=== PATIENT | female | born 1935 | race Caucasian/White ===

== ENCOUNTER 2017-03-25 09:09 | Outpatient (CLI) | payer MEDICARE ==
--- NOTE | 2017-03-25 16:05 | MRI ---
MRI BRAIN NONCONTRAST: DATE: 03/25/17 HISTORY: 82-year-old female with "jerking movements of extremities, R25.2." COMPARISON: No prior brain MRIs. FINDINGS: There is an extremely large number of tiny, punctate foci of remote intra-axial microhemorrhages thr oughout the bilateral cerebral hemispheres. These do not involve the basal ganglia, thalami, brainst em, and cerebellum. This is consistent with amyloid angiopathy. There are several small patchy foci of asymmetrically distributed T2 hyperintense intraaxial lesions , including in the following locations: left upper laeral parietal lobe, left mid-lateral parietal l obe, right insula, right lateral inferior frontal lobe, left anterior temporal lobe, and left orbita l gyrus posteriorly. These predominantly involve subcortical white matter, but there is some cortica l involvement. In addition to this, there are confluent, bilaterally symmetrical T2 hyperintensities throughout the periventricular, deep, and subcortical white matter, consistent with moderate to severe chronic isc hemic white matter changes due to microvascular atherosclerosis. The ventricles are normal in size and configuration. There is no evidence of acute intra-axial hemor rhage, restricted diffusion, mass effect, midline shift, or extra-axial fluid collection. IMPRESSION: 1. Amyloid angiopathy of the cerebrum. 2. Moderate to severe chronic ischemic white matter changes of the cerebrum due to microvascula r atherosclerosis. 3. Irregular, patchy foci of asymmetrical intra-axial signal abnormality in the cerebrum as lis raghu above. Differential diagnosis includes nonacute (subacute versus chronic) infarctions, and vasog enic edema around possible metastatic lesions. An MRI with IV gadolinium contrast would be useful (u nless there are contraindications to IV gadolinium). ESTEFANY R POS: ESSENCE
== END 2017-03-25 09:10 | disposition home or self-care (01) ==
LOC: MRI 09:09
PROVIDERS: ATTEND Psychiatry & Neurology Neurology
DX: R25.2 Cramp and spasm (principal); R41.3 Other amnesia; I67.2 Cerebral atherosclerosis; I99.8 Other disorder of circulatory system
CPT/HCPCS: 70551; 95816

== ENCOUNTER 2017-04-06 07:53 | Outpatient (CLI) | payer MEDICARE ==
--- NOTE | 2017-04-06 10:07 | MRI ---
MRI BRAIN WITH CONTRAST: Date: 04-06-17 History: 82-year-old female with abnormal noncontrast brain MRI of 03-25-17 (R90.89). Contrast enhanced study performed for further evaluation. Technique: Following IV injection of 15 ml of MultiHance Gadolinium based contrast agent, T1 weighted axial, co matt, and sagittal sequences were obtained, in addition to a T1 axial MPR sequence. FINDINGS: None of the multifocal signal abnormalities described in the report of 03-25-17, enhances. The rest o f the items in the impression are based on the original MRI of 03-25-17. IMPRESSION: 1. The irregular, patchy foci of asymmetric intraaxial signal abnormalities in the cerebrum, involvi ng subcortical white matter, but also some cortex, do not enhance. Therefore, these are not metastat ic lesions. They may represent subacute or chronic infarctions or perhaps traumatic injuries. Recomm end follow up noncontrast MRI of the brain in 3 - 6 months. 2. Amyloid angiopathy of the cerebrum. 3. Moderate to severe chronic ischemic white matter changes of the cerebrum due to microvascular ath erosclerosis. POS: ESSENCE
[2017-04-06] MEDS ORDERED: Gadobenate Dimeglumine 529 MG/1 ML (20ML VIAL) ONE (16:15)
== END 2017-04-06 07:54 | disposition home or self-care (01) ==
LOC: MRI 07:53
PROVIDERS: ATTEND Psychiatry & Neurology Neurology
DX: R90.89 Other abnormal findings on diagnostic imaging of central nervous system (principal); I67.2 Cerebral atherosclerosis; I68.0 Cerebral amyloid angiopathy; G93.89 Other specified disorders of brain
CPT/HCPCS: 70552; A9579

== ENCOUNTER 2020-03-07 11:40 | Observation (INO) | payer MEDICARE, MEDICAID, OTHER ==
[2020-03-07 12:36] LABS: #Eosinphils 0.1 thou/uL (0.0-0.7); #Lymphocytes 1.3 thou/uL (1.20-3.40); #Monocytes 0.9 thou/uL (0.11-0.59); #Neutrophils 4.1 thou/uL (1.40-6.50); %Basophils 0.6 % (0.0-1.0); %Eosinophils 1.3 % (0.0-10.0); %Lymphocytes 19.9 % (21.0-51.0); %Monocytes 14.7 % (0.0-10.0); %Neutrophils 63.5 % (42.0-75.0); Hemoglobin 11.1 g/dL (12.0-16.0); Mean Corpuscular HGB CONC 33.6 g/dL (32.0-36.0); Mean Corpuscular Hemoglobin 32.9 pg (27.0-31.0); Mean Corpuscular Volume 97.9 fL (78.0-98.0); Mean Platelet Volume 7.6 fL (7.4-10.4); Platelet Count 181 thou/uL (130-400); RBC Distribution Width 11.3 % (11.5-14.5); Red Blood Cell (RBC) Count 3.38 mill/uL (4.20-5.40); White Blood Cell (WBC) Count 6.4 thou/uL (4.8-10.8)
[2020-03-07 12:54] LABS: ALT (SGPT) 15 U/L (8-55); AST (SGOT) 20 U/L (5-34); Albumin 3.6 g/dL (3.4-4.8); Alkaline Phosphatase 55 U/L (40-110); Anion Gap 12 mmol/L (10-20); BUN (Urea Nitrogen) 18 mg/dL (9.8-20.1); Bilirubin, Total 0.3 mg/dL (0.2-1.2); Calc. Creatinine Clearance 0 mL/min (70-130); Calcium 8.8 mg/dL (7.8-10.44); Carbon Dioxide 26 mmol/L (23-31); Chloride 104 mmol/L (98-107); Estimated GFR-MDRD 65; Glucose 108 mg/dL (83-110); Potassium 4.2 mmol/L (3.5-5.1); Protein, Total 6.6 g/dL (6.0-8.3); Sodium 138 mmol/L (136-145)
--- NOTE | 2020-03-07 12:57 | RAD ---
PORTABLE CHEST 1 VIEW: DATE: 03/07/2020. TIME: 12:26 PM. HISTORY: Syncope. COMPARISON: 02/25/2020. FINDINGS: The heart size is borderline. The aorta is tortuous. No lobar consolidation, pneumothoraces, or ple ural effusions are seen. There are degenerative changes in the shoulder joints. IMPRESSION: No acute process. POS: AH
--- NOTE | 2020-03-07 13:35 | CT ---
HEAD CT WITHOUT CONTRAST: 03/07/20 COMPARISON: 02/25/20 HISTORY: Recent CPR. TECHNIQUE: Axial CT imaging at 5 mm intervals from vertex through skull base without contrast. FINDINGS: The imaged paranasal sinuses and mastoid air cells are well aerated. There is no displaced calvarial fracture. There is extensive periventricular, deep, and subcortical white matter hypodensity, evidence of small vessel disease. There is no intracranial hemorrhage, midline shift or mass effect. IMPRESSION: Chronic findings as above. No acute findings are seen. POS: [facility]
[2020-03-07 15:04] LABS: Bacteria/HPF None Seen HPF (None Seen); Bilirubin Negative (Negative); Blood, Urine 2+ (Negative); Clarity Clear (Clear); Glucose, Urine (Dipstick) Normal (Negative); Ketone, Urine Negative (Negative); Leukocyte Negative Leu/uL (Negative); Nitrite Negative (Negative); Protein, Urine (Dipstick) Negative (Neg-Trace); Specific Gravity, Urine 1.007 (1.002-1.036); Squamous Epithelial 0-3 HPF (0-3); Urobilinogen Normal mg/dL (Less than 2); WBC/HPF 0-3 HPF (0-3)
--- NOTE | 2020-03-07 17:20 | PDOC.HHP ---
Hospitalist HPI - History of Present Illness Syncope History of Present Illness: PCP: Dr. Crisostomo Chief complaint: Syncope The H&P was taken from the patient's daughter/MPOA and ER documentation secondary to the patient's history of dementia. 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 The patient was participating with physical therapy this morning. At the end of her session, while attempting to sit down on her bed, she became unresponsive for approximately 10 minutes. EMS was called. According to the ER record, EMS reported a stable blood pressure, stable heart rate, stable SPO2 saturation. 12-lead "clean" per EMS. Of note, the patient was recently discharged from our hospital on March 05 with a discharge diagnosis of UTI, dehydration and failure to thrive. Patient was discharged home on Levaquin, which her daughter states that she is still taking. Her her daughter denies any recent trauma or falls. Denies any recent fever or signs of infection. No changes in any medications. No recent surgeries or procedures. Her daughter stated that she thinks her mother became tired after participating in a full session of physical therapy and that along with her progressive dementia played a role in her altered mental status. ED Course: VITAL SIGNS TueMar 07, 2020 12:00 YENNI Rosenthal Cory BP: 117/68, MAP: 84, Pulse: 73, Resp: 18, O2 sat: 97 on (Room Air), Time: 2019 12:00. VITAL SIGNS TueMar 07, 2020 13:00 YENNI Rosenthal Cory BP: 127/71, MAP: 89, Pulse: 66, Resp: 16, O2 sat: 96 on (Room Air), Time: 2019 13:00. VITAL SIGNS TueMar 07, 2020 14:00 YENNI Rosenthal Cory BP: 147/80, MAP: 102, Pulse: 90, Resp: 13, O2 sat: 99 on (Room Air), Time: 2019 14:00. VITAL SIGNS TueMar 07, 2020 15:00 YENNI Rosenthal Cory BP: 134/81, MAP: 98, Pulse: 86, Resp: 15, O2 sat: 97 on (Room Air), Time: 2019 15:00. The patient presented with stable blood pressure, stable pulse, stable respirations, stable SPO2 sat, afebrile. EKG normal sinus rhythm no ST elevation. Chest x-ray negative for acute process. CT brain negative for acute process. Troponin 0 0.016. WBC 6.4. UA showed RBCs and blood. No medications administered. Hospitalist ROS - Review of Systems ROS unobtainable: due to mental status All other systems reviewed; all pertinent +/- noted in HPI/Subj - Medication Medications: acetaminophen oral TueMar 07, 2020 13:55 YENNI Eng Hannah tablet : Strength - 500 mg : ORAL Patient Dose: 1 tab(s) Oral 4 times a day. acetaminophen oral TueMar 07, 2020 13:55 YENNI Eng Hannah tablet : Strength - 650 mg : ORAL Patient Dose: 1 tab(s) Oral every 4 hours prn. aspirin oral TueMar 07, 2020 13:56 YENNI Eng Hannah tablet : Strength - 81 mg : ORAL Patient Dose: 1 tab(s) Oral once a day. citalopram TueMar 07, 2020 13:56 YENNI Eng Hannah tablet : Strength - 20 mg : ORAL Patient Dose: 1 tab(s) Oral once a day. Claritin TueMar 07, 2020 13:57 YENNI Eng Hannah tablet : Strength - 10 mg : ORAL Patient Dose: 1 tab(s) Oral once a day. Colace TueMar 07, 2020 13:57 YENNI Eng Hannah capsule : Strength - 100 mg : ORAL Patient Dose: 1 cap(s) Oral once a day PRN. donepezil TueMar 07, 2020 13:58 YENNI Eng Hannah tablet : Strength - 10 mg : ORAL Patient Dose: 1 tab(s) Oral once a day (at bedtime). famotidine oral TueMar 07, 2020 13:59 YENNI Eng Hannah tablet : Strength - 20 mg : ORAL Patient Dose: 1 tab(s) Oral once a day. Florastor TueMar 07, 2020 13:59 YENNI Eng Hannah capsule : Strength - 50 mg : ORAL Patient Dose: 1 cap(s) Oral once a day. gabapentin TueMar 07, 2020 14:02 YENNI Eng Hannah tablet : Strength - 300 mg : ORAL Patient Dose: 1 tab(s) Oral 2 times a day. Levaquin oral TueMar 07, 2020 14:03 YENNI Eng Hannah tablet : Strength - 750 mg : ORAL Patient Dose: 1 tab(s) Oral once a day.x 5 days (started 03/06/20). RisperDAL TueMar 07, 2020 14:03 YENNI Eng Hannah tablet : Strength - 0.25 mg : ORAL Patient Dose: 1 tab(s) Oral 2 times a day. Synthroid oral TueMar 07, 2020 14:04 YENNI Eng Hannah tablet : Strength - 100 mcg : ORAL Patient Dose: 1 tab(s) Oral once a day (in the morning). Thera-M tablet TueMar 07, 2020 14:04 YENNI Eng Hannah tablet : ORAL Patient Dose: 1 tab(s) Oral once a day. Allergies: No Known Allergies Hospitalist History - Past Medical History Source: patient, family, RN notes reviewed, [facility] record Psych: reports: Depression Musculoskeletal: reports: Osteoarthritis Endocrine: reports: Hypothyroidism Other Medical History: MEDICAL HISTORY TueMar 07, 2020 13:54 YENNI Eng Hannah Hypothyroidism, GERD, polyneuropathy, HTN, osteoarthritis, CVA, dementia. Verified with penitentiary paperwork on 03/07/20. FEMALE SURGICAL HISTORY TueMar 07, 2020 13:54 YENNI Eng Hannah Patient's surgical history not available at time of evaluation. PSYCHIATRIC HISTORY TueMar 07, 2020 13:54 YENNI Eng Hannah Psychiatric history includes, depression, Verified with penitentiary paperwork on 03/07/20. SOCIAL HISTORY TueMar 07, 2020 13:54 YENNI Eng Hannah Patient denies alcohol use, Patient denies drug use, Patient has no smoking history, Lives in [facility] care facility, Name of [facility], [place], 2 person assist for ambulation, diet is pureed, thin liquids, feeder/ prompting, Verified with daughter/MPOA. FAMILY HISTORY: non contributory to this case. - Social History Smoking Status: Never smoker Alcohol: reports: None Drugs: reports: none Activity level: wheelchair bound (2 person assist to ambulate.) - Exam General Appearance: NAD, awake alert. negative: ill appearing General - other findings: Moves all extremities well, baseline per daughter at bedside. Eye: anicteric sclera Eye - other findings: Pupils equal round reactive to light, 2 bilaterally ENT: normocephalic atraumatic, dry oral mucosa Neck: supple, symmetric, no JVD, no lymphadenopathy Heart: RRR, no murmur, no gallops, no rubs, normal peripheral pulses Respiratory: CTAB, no wheezes, no rales, no ronchi, normal chest expansion, no tachypnea Respiratory - other findings: Diminished in lower lobes Gastrointestinal: soft, non-tender, normal bowel sounds, no hepatomegaly, no splenomegaly, no bruit Gastrointestinal - other findings: Mildly distended suprapubic region Extremities: no cyanosis, no clubbing, no edema Skin: negative: no lesions Skin - other findings: Multiple bruises to BUE/BLE at multiple stages healing Neurological: normal sensation to touch, no weakness (No focal motor weakness), no focal deficits Neurological - other findings: Speech is inappropriate intermittently, baseline per daughter at bedside Musculoskeletal: generalized weakness Psychiatric: oriented to person (Waxes and wanes per daughter), flat affect Hospitalist Results - Labs Result Diagrams: 03/07/20 12:19 03/07/20 12:19 Lab results: WBC 6.4 thou/uL (4.8-10.8) 03/07/20 12:19 Hgb 11.1 g/dL (12.0-16.0) L 03/07/20 12:19 Hct 33.1 % (36.0-47.0) L 03/07/20 12:19 MCV 97.9 fL (78.0-98.0) 03/07/20 12:19 Plt Count 181 thou/uL (130-400) 03/07/20 12:19 Neutrophils % 63.5 % (42.0-75.0) 03/07/20 12:19 Sodium 138 mmol/L (136-145) 03/07/20 12:19 Potassium 4.2 mmol/L (3.5-5.1) 03/07/20 12:19 Chloride 104 mmol/L (98-107) 03/07/20 12:19 Carbon Dioxide 26 mmol/L (23-31) 03/07/20 12:19 BUN 18 mg/dL (9.8-20.1) 03/07/20 12:19 Creatinine 0.83 mg/dL (0.6-1.1) 03/07/20 12:19 Glucose 108 mg/dL (83-110) 03/07/20 12:19 Calcium 8.8 mg/dL (7.8-10.44) 03/07/20 12:19 Total Bilirubin 0.3 mg/dL (0.2-1.2) 03/07/20 12:19 AST 20 U/L (5-34) 03/07/20 12:19 ALT 15 U/L (8-55) 03/07/20 12:19 Alkaline Phosphatase 55 U/L (40-110) 03/07/20 12:19 Troponin I 0.016 ng/mL (< 0.028) 03/07/20 12:19 Serum Total Protein 6.6 g/dL (6.0-8.3) 03/07/20 12:19 Albumin 3.6 g/dL (3.4-4.8) 03/07/20 12:19 Urine Ketones Negative mg/dL (Negative) 03/07/20 14:47 Urine Blood 2+ (Negative) A 03/07/20 14:47 Urine Nitrite Negative (Negative) 03/07/20 14:47 Ur Leukocyte Esterase Negative Marco A/uL (Negative) 03/07/20 14:47 Urine RBC 4-6 HPF (0-3) A 03/07/20 14:47 Urine WBC 0-3 HPF (0-3) 03/07/20 14:47 Ur Squamous Epith Cells 0-3 HPF (0-3) 03/07/20 14:47 Urine Bacteria None Seen HPF (None Seen) 03/07/20 14:47 - EKG Interpretation EK lead EKG shows normal sinus rhythm, Rate (beats per minute): 72, with no ectopics, Conduction normal, ST segments normal, [place], left, Nonspecific T wave changes. - Radiology Interpretation CT scan - head Status: report reviewed by me Chest x-ray Status: report reviewed by me Hospitalist H&P A/P - Problem (1) Syncope Code(s): R55 - SYNCOPE AND COLLAPSE Status: Acute Assessment and Plan: We will admit to the telemetry floor, stroke unit, observation status. Expected length of stay less than 2 midnights. Patient presented with stable vital signs. CT brain, chest x-ray negative for any acute process. EKG was normal sinus rhythm, initial troponin negative. CBC, CMP, UA unremarkable. Will give gentle IV fluid hydration. Will trend troponins, check TSH, BNP, mag level. Get echocardiogram and carotid ultrasound. Consult neurology. Perform neuro checks. Check orthostatic vital signs. (2) Dementia Code(s): F03.90 - UNSPECIFIED DEMENTIA WITHOUT BEHAVIORAL DISTURBANCE Status: Chronic Assessment and Plan: Daughter reports that her mother is progressing to late stage dementia. Mental status waxes and wanes. Reports she is on a pured, thin liquid, needs prompting to eat. Will order appropriate diet. We will restart home donezepil. Fall precautions. (3) FTT (failure to thrive) in adult Status: Chronic Assessment and Plan: Chronic. (4) Hypothyroidism Code(s): E03.9 - HYPOTHYROIDISM, UNSPECIFIED Status: Chronic Assessment and Plan: We will check TSH level. Will restart patient's home dose of Synthroid. (5) GERD (gastroesophageal reflux disease) Code(s): K21.9 - GASTRO-ESOPHAGEAL REFLUX DISEASE WITHOUT ESOPHAGITIS Status: Chronic Assessment and Plan: We will restart patient's home dose of Pepcid. (6) HTN (hypertension) Code(s): I10 - ESSENTIAL (PRIMARY) HYPERTENSION Status: Chronic Assessment and Plan: Patient presented with a stable blood pressure. She does not take any home medications for hypertension. We will continue to monitor BP. - Plan Plan: SCDs for DVT prophylaxis. Pepcid for GI prophylaxis. CODE STATUS this DNAR. MPOA is ALISSA ANNA, Relationship to patient DAUGHTER, Phone number: . Discussed case with Dr. Guillen.
[2020-03-07] MEDS ORDERED: Ondansetron ODT 4 MG TAB PO PRN (17:46)
[2020-03-07] MEDS ORDERED: Acetaminophen 650 MG Suppository PR PRN (17:46)
[2020-03-07] MEDS ORDERED: Calcium Carbonate 500 MG ChewTAB PO PRN (17:46)
[2020-03-07] MEDS ORDERED: Acetaminophen 325 MG TAB PO PRN ×2 (17:46→17:53)
[2020-03-07] MEDS ORDERED: Senokot S 8.6-50 MG TAB PO PRN (17:46)
[2020-03-07] MEDS ORDERED: Ondansetron PF 4 MG/2 ML Vial IVP PRN (17:46)
[2020-03-07] MEDS ORDERED: Docusate 100 MG CAP PO PRN (17:53)
[2020-03-07] MEDS ORDERED: Sodium Chloride 0.9% 1,000 ML IV SCH (18:00)
[2020-03-07 20:45] VITALS: BMI 21.8
[2020-03-07 21:11] LABS: Troponin I Less than 0.010 ng/mL (< 0.028)
[2020-03-07] MEDS: Acetaminophen 500 MG TAB PO SCH (21:28)
[2020-03-07] MEDS: Gabapentin 300 MG CAP PO SCH (21:29)
[2020-03-07] MEDS: Famotidine 20 MG TAB PO SCH (21:29)
[2020-03-07] MEDS: Donepezil HCl 5 MG TAB PO SCH (21:29)
[2020-03-07] MEDS: Famotidine/PF 20 mg/2ml Vial SLOW IVP SCH (21:29)
--- NOTE | 2020-03-07 22:34 | ULT ---
BILATERAL CAROTID DUPLEX ULTRASOUND: HISTORY: Stroke TECHNIQUE: Grayscale, color-flow and spectral Doppler ultrasound imaging of the extracranial carotid artery syst ems and vertebral arteries was performed bilaterally. FINDINGS: Right carotid: Scattered atherosclerotic plaque in the carotid bifurcation and proximal internal hoffmann tid artery Left carotid: Minimal atherosclerosis of the carotid bifurcation and proximal internal carotid artery . The peak systolic velocity in the right ICA measures 104.9 cm/s. The peak systolic velocity in the r ight CCA measures 93.8 cm/s. The peak systolic velocity in the left ICA measures 59.9 cm/s. The peak systolic velocity in the l eft CCA measures 92.7 cm/s. The right IC/CC ration is1.1. The left IC/CC ratio is 0.7. Vertebral flow: antegrade, bilaterally. . IMPRESSION: No hemodynamically significant stenosis of either cervical carotid artery.
[2020-03-08] MEDS ORDERED: Magnesium 2 GM/50 ML 2 GM in Premix Bag 1 BAG IVPB SCH (00:30)
[2020-03-08 05:03] LABS: #Eosinphils 0.1 thou/uL (0.0-0.7); #Lymphocytes 1.4 thou/uL (1.20-3.40); #Monocytes 1.2 thou/uL (0.11-0.59); #Neutrophils 5.3 thou/uL (1.40-6.50); %Basophils 0.4 % (0.0-1.0); %Lymphocytes 17.3 % (21.0-51.0); %Monocytes 14.8 % (0.0-10.0); %Neutrophils 66.5 % (42.0-75.0); Hemoglobin 11.1 g/dL (12.0-16.0); Mean Corpuscular HGB CONC 32.9 g/dL (32.0-36.0); Mean Corpuscular Hemoglobin 32.1 pg (27.0-31.0); Mean Corpuscular Volume 97.5 fL (78.0-98.0); Mean Platelet Volume 7.5 fL (7.4-10.4); Platelet Count 192 thou/uL (130-400); RBC Distribution Width 11.5 % (11.5-14.5); Red Blood Cell (RBC) Count 3.46 mill/uL (4.20-5.40); White Blood Cell (WBC) Count 7.9 thou/uL (4.8-10.8)
[2020-03-08] MEDS: Levothyroxine Sodium 100 MCG TAB PO SCH (05:18)
[2020-03-08 05:20] LABS: Anion Gap 14 mmol/L (10-20); BUN (Urea Nitrogen) 13 mg/dL (9.8-20.1); Calc. Creatinine Clearance 53 mL/min (70-130); Calcium 8.8 mg/dL (7.8-10.44); Carbon Dioxide 24 mmol/L (23-31); Chloride 105 mmol/L (98-107); Estimated GFR-MDRD 70; Glucose 96 mg/dL (83-110); Potassium 3.8 mmol/L (3.5-5.1); Sodium 139 mmol/L (136-145)
[2020-03-08] MEDS: Famotidine/PF 20 mg/2ml Vial SLOW IVP SCH ×2 (08:28→22:17)
[2020-03-08] MEDS ORDERED: Famotidine 20 MG TAB PO SCH (09:00)
--- NOTE | 2020-03-08 12:12 | EEG ---
DATE OF SERVICE: 03/08/2020 ATTENDING PHYSICIAN: Aleyda Gonzalez MD This EEG was performed using 24-channel [employer]iaretek video digital EEG machine with 24-disk electrode. This was an extended 2 hours 4 minutes of inpatient video EEG recording. Digital analysis of the EEG was done for spike and seizure detection which revealed no abnormalities. BACKGROUND: The posterior background rhythm was not observed. HYPERVENTILATION: Not performed. PHOTIC STIMULATION: No significant response seen with photic stimulation. SLEEP: No stage change was observed. EEG DIAGNOSES: 1. Intermittent irregular theta activity seen throughout the recording. 2. Absence of posterior background rhythm. CLINICAL INTERPRETATION: This EEG is consistent with moderate generalized nonspecific cerebral dysfunction. Job ID: [id number]
[2020-03-08] MEDS: Lactinex Tablet PO SCH (12:19)
[2020-03-08] MEDS: Loratadine 10 MG TAB PO SCH (12:19)
[2020-03-08] MEDS: Multivitamin W/ Minerals 1 TAB PO SCH (12:19)
[2020-03-08] MEDS: Aspirin 81 mg Enteric Coated Tablet PO SCH (12:19)
[2020-03-08] MEDS: Gabapentin 300 MG CAP PO SCH ×2 (12:19→22:17)
[2020-03-08] MEDS: Acetaminophen 500 MG TAB PO SCH ×4 (12:19→22:17)
[2020-03-08] MEDS: Famotidine 20 MG TAB PO SCH ×2 (12:20→22:17)
[2020-03-08] MEDS: risperiDONE 0.25 MG TAB PO SCH ×2 (12:25→22:17)
[2020-03-08] MEDS: Citalopram 20 MG TAB PO SCH (12:26)
--- NOTE | 2020-03-08 13:13 | CON ---
NEUROLOGY CONSULTATION DATE OF CONSULTATION: 03/08/2020 REASON FOR CONSULTATION: Syncope. HISTORY OF PRESENT ILLNESS: Ms. Amelia Wagner is an 85-year-old female with medical history significant for hypothyroidism, GERD, dementia, prior CVA, osteoarthritis, presented to the hospital with an episode of loss of consciousness. The patient is unable to provide the history and history is taken from review of the medical. Per records, the patient was participating in physical therapy on 03/07/2020. When became unresponsive for 10 minutes, there was no documentation of jerking, tongue bite or urinary incontinence associated with the episode. EMS was called and at that time, her blood pressure was stable. A 12-lead EKG was done, which was normal. She was brought to the hospital for further evaluation. According to the records, there has been no recent trauma, falls, fever, or infection. There have been no changes in the medication and the patient has been participating in physical therapy sessions, but she does have progressive dementia. She was recently discharged from the hospital on March 05 with UTI, dehydration and failure to thrive. There is no documentation of focal weakness, focal paresthesias, nausea, vomiting, headache, chest pain associated with the episode. REVIEW OF SYSTEMS: Unable to obtain secondary to patient's mental status. MEDICATIONS: 1. Tylenol 500 mg 4 times daily. 2. Aspirin 81 mg once daily. 3. Citalopram 20 mg once daily. 4. Claritin 10 mg once daily. 5. Colace 1 capsule once daily p.r.n. 6. Donepezil 10 mg once daily. Famotidine 20 mg once daily. 1. Florastor 50 mg once daily. 2. Gabapentin 300 mg 2 times daily. 3. Levaquin 750 mg once daily for 5 days, started on 03/06/2020. 4. Risperdal 0.25 mg twice daily. 5. Synthroid 100 mcg 1 tab once daily. 6. Thera-M 1 tab once daily. ALLERGIES: NO KNOWN DRUG ALLERGIES. PAST MEDICAL HISTORY: Depression, osteoarthritis, hypothyroidism, GERD, polyneuropathy, hypertension, CVA, dementia. PAST SURGICAL HISTORY: Not significant. SOCIAL HISTORY: There is no documented history of illegal drug abuse, alcohol abuse, or smoking. She lives in a long-term care facility. The patient is wheelchair bound and needs 2 people to assist. FAMILY HISTORY: No family history of stroke. PHYSICAL EXAMINATION: VITAL SIGNS: Blood pressure 110/60, pulse 80, respiratory rate 18. General Appearance: NAD, awake alert. negative: ill appearing Eye: anicteric sclera Eye - other findings: Pupils equal round reactive to light, 2 bilaterally ENT: normocephalic atraumatic, dry oral mucosa Neck: supple, symmetric, no JVD, no lymphadenopathy Heart: RRR, no murmur, no gallops, no rubs, normal peripheral pulses Respiratory: CTAB, no wheezes, no rales, no ronchi, normal chest expansion, no tachypnea Respiratory - other findings: Diminished in lower lobes Gastrointestinal: soft, non-tender, normal bowel sounds, no hepatomegaly, no splenomegaly, no bruit Gastrointestinal - other findings: Mildly distended suprapubic region Extremities: no cyanosis, no clubbing, no edema Skin: negative: no lesions Skin - other findings: Multiple bruises Neurological: Mental status, the patient is alert, awake, but does not follow commands or maintain any eye contact. Cranial nerves, pupils round and reactive to light. Face symmetric. Tongue midline. Moves neck in both direction. Motor; muscle tone and bulk are normal. Moving all 4 extremities equally and symmetrically. Sensory withdraws to nailbed pressure bilaterally. Gait deferred due to patient mental status. DATA REVIEWED: I reviewed the labs, which were significant for her anemia, hemoglobin 11.1, hematocrit 33.3. Rest of the labs were essentially unremarkable. Urinalysis was negative for infection. EEG did not show did not show any seizure activity. 03/07/20 12:19 Lab results: WBC 6.4 thou/uL (4.8-10.8) 03/07/20 12:19 Hgb 11.1 g/dL (12.0-16.0) L 03/07/20 12:19 Hct 33.1 % (36.0-47.0) L 03/07/20 12:19 MCV 97.9 fL (78.0-98.0) 03/07/20 12:19 Plt Count 181 thou/uL (130-400) 03/07/20 12:19 Neutrophils % 63.5 % (42.0-75.0) 03/07/20 12:19 Sodium 138 mmol/L (136-145) 03/07/20 12:19 Potassium 4.2 mmol/L (3.5-5.1) 03/07/20 12:19 Chloride 104 mmol/L (98-107) 03/07/20 12:19 Carbon Dioxide 26 mmol/L (23-31) 03/07/20 12:19 BUN 18 mg/dL (9.8-20.1) 03/07/20 12:19 Creatinine 0.83 mg/dL (0.6-1.1) 03/07/20 12:19 Glucose 108 mg/dL (83-110) 03/07/20 12:19 Calcium 8.8 mg/dL (7.8-10.44) 03/07/20 12:19 Total Bilirubin 0.3 mg/dL (0.2-1.2) 03/07/20 12:19 AST 20 U/L (5-34) 03/07/20 12:19 ALT 15 U/L (8-55) 03/07/20 12:19 Alkaline Phosphatase 55 U/L (40-110) 03/07/20 12:19 Troponin I 0.016 ng/mL (< 0.028) 03/07/20 12:19 Serum Total Protein 6.6 g/dL (6.0-8.3) 03/07/20 12:19 Albumin 3.6 g/dL (3.4-4.8) 03/07/20 12:19 Urine Ketones Negative mg/dL (Negative) 03/07/20 14:47 Urine Blood 2+ (Negative) A 03/07/20 14:47 Urine Nitrite Negative (Negative) 03/07/20 14:47 Ur Leukocyte Esterase Negative Marco A/uL (Negative) 03/07/20 14:47 Urine RBC 4-6 HPF (0-3) A 03/07/20 14:47 Urine WBC 0-3 HPF (0-3) 03/07/20 14:47 Ur Squamous Epith Cells 0-3 HPF (0-3) 03/07/20 14:47 Urine Bacteria None Seen HPF (None Seen) 03/07/20 14:47 - EKG Interpretation EK lead EKG shows normal sinus rhythm, Rate (beats per minute): 72, with no ectopics, Conduction normal, ST segments normal, [place], left, Nonspecific T wave changes. - Radiology Interpretation CT scan - head Status: report reviewed by me Chest x-ray Status: report reviewed by me ASSESSMENT AND PLAN: (1) Syncope Code(s): R55 - SYNCOPE AND COLLAPSE Status: Acute (2) Dementia Code(s): F03.90 - UNSPECIFIED DEMENTIA WITHOUT BEHAVIORAL DISTURBANCE Status: Chronic (3) FTT (failure to thrive) in adult Status: Chronic Assessment and Plan: Chronic. (4) Hypothyroidism Code(s): E03.9 - HYPOTHYROIDISM, UNSPECIFIED Status: Chronic (5) GERD (gastroesophageal reflux disease) Code(s): K21.9 - GASTRO-ESOPHAGEAL REFLUX DISEASE WITHOUT ESOPHAGITIS Status: Chronic (6) HTN (hypertension) Code(s): I10 - ESSENTIAL (PRIMARY) HYPERTENSION Status: Chronic Ms. Wagner is an 85-year-old female, who was consulted for an episode of loss of consciousness and seizure seems low on the differential. Based on the clinical presentation and also EEG is negative for seizure activity. The EEG does show moderate cerebral dysfunction, which was consistent with history of dementia. Head CT did not reveal any acute intracranial pathology. Neuro checks every 4 hours. Continue strict control of blood pressure and blood glucose. Continue aspirin for secondary stroke prevention. Continue home medications. Continue medical management per primary team. Case discussed with primary attending Dr. Barboza. Thank you for the consult. Job ID: [id number] [facility]
[2020-03-08 14:15] LABS: SARS-CoV-2 MS2 Positive; SARS-CoV-2 N Gene Negative; SARS-CoV-2 S Gene Negative; SARS-CoV-2 by NAA Not Detected (NotDetected); SARS-CoV-2 orf1ab Negative
--- NOTE | 2020-03-08 14:22 | PDOC.HOSPP ---
- Subjective Encounter Date: 03/08/20 Subjective: Patient continues to be confused. I am familiar with the patient from her previous admission at the [facility] facility. She appears to be at her baseline mental status. She speaks but is incoherent. - Objective Vital Signs & Weight: Vital Signs (12 hours) Temp Pulse Resp BP Pulse Ox 03/08/20 11:00 97.9 F 78 18 111/81 98 03/08/20 07:33 97.8 F 81 18 116/76 100 03/08/20 04:00 98.0 F 73 22 H 116/79 98 Weight Weight 139 lb 4.8 oz I&O: 03/07/20 03/08/20 03/09/20 06:59 06:59 06:59 Intake Total 675 Output Total 1050 Balance -375 Result Diagrams: 03/08/20 04:50 03/08/20 04:50 Hospitalist ROS - Medication Medications: Active Medications Generic Name Dose Route Start Last Admin Trade Name Freq PRN Reason Stop Dose Admin Acetaminophen 500 mg 03/07/20 21:00 03/08/20 12:20 Tylenol PO Not Given QID PILY Acidophilus 1 tab 03/08/20 09:00 03/08/20 12:19 Floranex PO 1 tab DAILY PILY Administration Aspirin 81 mg 03/08/20 09:00 03/08/20 12:19 Ecotrin PO 81 mg DAILY PILY Administration Citalopram Hydrobromide 20 mg 03/08/20 09:00 03/08/20 12:26 Celexa PO Not Given QAM PILY Donepezil HCl 10 mg 03/07/20 21:00 03/07/20 21:29 Aricept PO Not Given HS PILY Famotidine 20 mg 03/07/20 21:00 03/08/20 08:28 Pepcid SLOW IVP 20 mg Q12HR PILY Administration Famotidine 20 mg 03/07/20 21:00 03/08/20 12:20 Pepcid PO Not Given BID PILY Gabapentin 300 mg 03/07/20 21:00 03/08/20 12:19 Neurontin PO 300 mg BID PILY Administration Iron/Minerals/Multivitamins 1 tab 03/08/20 09:00 03/08/20 12:19 Theragran M PO 1 tab DAILY PILY Administration Levothyroxine Sodium 100 mcg 03/08/20 06:00 03/08/20 05:18 Synthroid PO Not Given 0600 PILY Loratadine 10 mg 03/08/20 09:00 03/08/20 12:19 Claritin PO 10 mg DAILY PILY Administration Risperidone 0.25 mg 03/08/20 09:00 03/08/20 12:25 Risperidone PO 0.25 mg BID PILY Administration - Exam General Appearance: NAD, awake alert Heart: RRR, no murmur, no gallops, no rubs, normal peripheral pulses Respiratory: CTAB, no wheezes, no rales, no ronchi, normal chest expansion, no tachypnea, normal percussion Gastrointestinal: soft, non-tender, non-distended, normal bowel sounds, no palpable masses, no hepatomegaly, no splenomegaly, no bruit Extremities: no cyanosis, no clubbing, no edema Skin: normal turgor Neurological: no focal deficits Musculoskeletal: generalized weakness Psychiatric: not oriented Hosp A/P (1) Syncope Code(s): R55 - SYNCOPE AND COLLAPSE Status: Acute (2) Dementia Code(s): F03.90 - UNSPECIFIED DEMENTIA WITHOUT BEHAVIORAL DISTURBANCE Status: Chronic (3) FTT (failure to thrive) in adult Status: Chronic (4) GERD (gastroesophageal reflux disease) Code(s): K21.9 - GASTRO-ESOPHAGEAL REFLUX DISEASE WITHOUT ESOPHAGITIS Status: Chronic (5) Hypothyroidism Code(s): E03.9 - HYPOTHYROIDISM, UNSPECIFIED Status: Chronic - Plan Syncope: Patient was finishing therapy and apparently was reported to be unconscious for about 10 minutes. She does not appear to have suffered any long-lasting or ill effects of that event. So far work-up of it has been unremarkable. She has an echocardiogram still pending. Discussed with neurology. If the echo appears to be normal will likely discharge her back to her nursing facility. Recent UTI: Repeat urinalysis here does not reveal any evidence of ongoing infection. Levaquin is discontinued. Dementia: Patient appears to be at her mental baseline. Failure to thrive: Secondary to the patient's advanced dementia.
[2020-03-08] MEDS: Donepezil HCl 5 MG TAB PO SCH (22:17)
[2020-03-09] MEDS: Levothyroxine Sodium 100 MCG TAB PO SCH (06:52)
[2020-03-09] MEDS: Famotidine/PF 20 mg/2ml Vial SLOW IVP SCH (08:47)
[2020-03-09] MEDS: risperiDONE 0.25 MG TAB PO SCH (08:47)
[2020-03-09] MEDS: Citalopram 20 MG TAB PO SCH (08:47)
[2020-03-09] MEDS: Aspirin 81 mg Enteric Coated Tablet PO SCH (08:47)
[2020-03-09] MEDS: Multivitamin W/ Minerals 1 TAB PO SCH (08:47)
[2020-03-09] MEDS: Lactinex Tablet PO SCH (08:47)
[2020-03-09] MEDS: Famotidine 20 MG TAB PO SCH (08:47)
[2020-03-09] MEDS: Acetaminophen 500 MG TAB PO SCH ×2 (08:47→14:21)
[2020-03-09] MEDS: Gabapentin 300 MG CAP PO SCH (08:47)
[2020-03-09] MEDS: Loratadine 10 MG TAB PO SCH (08:47)
[2020-03-09 11:45] VITALS: BP 98/75; TEMP 97.8
--- NOTE | 2020-03-10 22:12 | DIS ---
DATE OF ADMISSION: 03/07/2020 DATE OF DISCHARGE: 03/09/2020 DISCHARGE DIAGNOSES: 1. Syncope. 2. Dementia. 3. Failure to thrive. 4. Gastroesophageal reflux disease. 5. Hypothyroidism. HISTORY OF PRESENT ILLNESS: This patient is an 85-year-old female, who was recently admitted to the [facility], where I treated her for what appeared to be underlying urinary tract infection. The patient was discharged to a new nursing facility on p.o. Levaquin. The patient was there finishing some therapy when she had episode that appeared to be about 10 minutes syncopal episode. She was subsequently brought to the hospital for further evaluation. HOSPITAL COURSE: The patient's initial workup including chest x-ray and CT of the brain were negative. She was placed in telemetry on the stroke floor. She underwent carotid Dopplers, EEG testing, consultation with Neurology and echocardiogram, all of which were unremarkable. Her vital signs remained stable. She had no signs of infection and was ultimately felt to be stable for discharge back to the facility after discussing this with her daughter, Mima. PHYSICAL EXAMINATION: VITAL SIGNS: On the day of discharge, temperature was 97.8, pulse 88, respirations 18, O2 saturation 96% on room air, BP is 98/75. GENERAL: She was awake, talkative, but speech was coherent and unintelligible. HEART: Regular. LUNGS: Clear. ABDOMEN: Benign. EXTREMITIES: No edema. DISPOSITION: The patient is discharged back to the [facility]. ACTIVITY: As tolerated. She will have OT and PT. DISCHARGE MEDICATIONS: She will remain on: 1. Citalopram 20 mg daily. 2. Gabapentin 300 mg b.i.d. 3. Aspirin 81 mg daily. 4. Donepezil 10 mg at bedtime. 5. Levothyroxine 100 mcg daily. 6. Tylenol p.r.n. 7. Docusate p.r.n. 8. Famotidine daily. 9. Lactobacillus one daily. 10. Multivitamin one daily. 11. Risperdal 0.25 b.i.d. FOLLOWUP: She has follow up with Dr. Kiarra Garay. She can return to the hospital at anytime she has the need to do so. TIME SPENT: Time spent in discharge activities is greater than 30 minutes. Job ID: [id number]
== END 2020-03-09 13:48 ==
LOC: ERS 11:40 → 2SE 17:01
PROVIDERS: ADMIT Internal Medicine; ATTEND Internal Medicine
DX: R55 Syncope and collapse (principal); F03.90 Unspecified dementia, unspecified severity, without behavioral disturbance, psychotic disturbance, mood disturbance, and anxiety; K21.9 Gastro-esophageal reflux disease without esophagitis; E03.9 Hypothyroidism, unspecified; I10 Essential (primary) hypertension; F32.9 Major depressive disorder, single episode, unspecified; M19.90 Unspecified osteoarthritis, unspecified site; G62.9 Polyneuropathy, unspecified; R62.7 Adult failure to thrive; Z68.21 Body mass index [BMI] 21.0-21.9, adult; Z66 Do not resuscitate; Z86.73 Personal history of transient ischemic attack (TIA), and cerebral infarction without residual deficits; Z79.82 Long term (current) use of aspirin; Z79.899 Other long term (current) drug therapy; Z99.3 Dependence on wheelchair; Z20.828 Contact with and (suspected) exposure to other viral communicable diseases
CPT/HCPCS: 51701; 70450; 71045; 80048; 83735; 83880; 84484 ×2; 85025; 93005; 93306; 93880; 94760; 95712; 95816; 95819; 95951; 99285; U0003; 36415; 51702; 51798; 80053; 81003; 81015; 84443; 87635; 96361; 96374; 96376; G0378; J3475; S0028

== ENCOUNTER 2020-05-29 05:17 | Inpatient (IN) | payer MEDICARE, MEDICAID ==
[2020-05-29] MEDS ORDERED: Azithromycin 500 MG VIAL ONE (05:38)
[2020-05-29] MEDS ORDERED: Sodium Chloride 0.9% 1,000 ML IV SCH (07:15)
--- NOTE | 2020-05-29 08:29 | HP ---
REASON FOR ADMISSION: Worsening confusion. HISTORY OF PRESENT ILLNESS: This is an 85-year-old female patient who resides at [facility], brought by EMS for decline in her mental status. With decreased oxygen saturation, she was diagnosed with COVID on May 16. As the days progressed, she started having decreased oral intake and worsening of her confusion and yesterday, she was unresponsive and not following command, also hypoxic. Her pulse ox was around 85% on room air, and for that reason, [facility] staff called EMS. Currently, the patient is in our emergency room. When I went into see her, she was not following command, but she was on oxygen, saturating 100%. She looked slightly tachypneic, but does not appear in distress. I reviewed her records, and the patient was in our hospital approximately 3 months ago after losing her consciousness. She remained hospitalized for 2 days; during which, she underwent EEG testing and carotid Doppler and was seen by Neurology. Also, did have an echocardiogram. Her workup was essentially negative. PAST MEDICAL HISTORY: 1. Dementia. 2. Hypothyroidism. 3. Stroke. 4. High blood pressure. 5. GERD. 6. Osteoarthritis. 7. UTI. 8. Dysphagia. 9. Polyneuropathy. SOCIAL HISTORY: She does not smoke. Does not drink alcohol. FAMILY HISTORY: Unable to obtain due to her confusion. REVIEW OF SYSTEMS: Unable to obtain due to her confusion. ALLERGIES: NO NOTE OF ANY DRUG ALLERGY. PHYSICAL EXAMINATION: GENERAL: She opens her eyes, but not very responsive. VITAL SIGNS: Her blood pressure is 123/80, pulse of 82, temperature is 97.7, saturating 96% on 4 L nasal cannula. HEENT: Head is nontraumatic, normocephalic. Pupils equal, reactive. Extraocular movements are intact. Nonicteric sclerae. Well injected conjunctivae. Oral mucosa normal. Nasal mucosa normal. NECK: Supple. No adenopathy. No murmur. Thyroid is not palpable. Trachea is midline. No supraclavicular adenopathy. HEART: S1, S2 regular. No murmur. No gallops. No friction rubs. No displacement of PMI. LUNGS: Poor respiratory effort and expiratory rhonchi. ABDOMEN: Bowel sounds positive. Nontender abdomen. No hepatosplenomegaly. EXTREMITIES: No lower extremity edema. No cyanosis. NEUROLOGIC: Unable to fully perform due to her confusion. She is not following commands. LABORATORY DATA: Her blood work revealed WBC of 24.6, hemoglobin of 11.6, platelets of 237, neutrophil count 82%. Sodium 146, potassium 4.1, bicarb 24, BUN 35, creatinine 1.1, glucose 159, lactic acid of 3.3. Troponin 0.048. BNP 303.8. Urinalysis shows evidence of UTI. ASSESSMENT AND PLAN: This is an 85-year-old female patient who is a [facility] resident and is demented, was diagnosed with COVID pneumonia approximately 12 days ago, recently became hypoxic and became more confused. Her chest x-ray shows possible COVID pneumonia that could be the underlying cause of her hypoxia. Also, she does have urinary tract infection. Neurology: The patient is more confused than usual. She is not very responsive. Most likely, it is metabolic due to COVID pneumonia and her urinary tract infection on top of the fact that she has dementia. Continue to monitor her from that standpoint. We will withhold any sedative agents. GI: The patient is not very responsive. I do not feel that she is safe to have her on a diet. We will keep her n.p.o. for now. Pulmonary: The patient was hypoxic, most likely due to COVID pneumonia. We were awaiting the official report of her chest x-ray. She did receive IV Decadron and we will continue with that on a daily basis. She did receive Rocephin and azithromycin. We will continue with that as well in case we are dealing with superimposed bacterial pneumonia. ID: The patient does have urinary tract infection based on her previous microbiology results. Her urine culture did grow multi-sensitive Escherichia coli, so we will have her on IV Rocephin, which should treat her urinary tract infection. For deep venous thrombosis prophylaxis, she will be on heparin subcutaneously. The patient is a DNR. I will attempt to call her daughter to confirm, but we will initiate DNR order while she is in the hospital. Job ID: [id number]
[2020-05-29] MEDS ORDERED: Dexamethasone 6 MG in Sodium Chloride 0.9% 50 ML IVPB SCH (09:00)
[2020-05-29] MEDS: Dexamethasone 4 mg/ml Vial SLOW IVP SCH (09:19)
[2020-05-29] MEDS: Cefepime 2 GM in Sodium Chloride 0.9% 100 ML IVPB SCH ×2 (09:20→20:11)
[2020-05-29] MEDS: Heparin 5,000 UNITS/ML VIAL SC SCH ×3 (09:21→20:10)
[2020-05-29 09:32] LABS: Troponin I 0.048 ng/mL (< 0.028)
[2020-05-29] MEDS ORDERED: FLU VACC QS2020-21(65YR UP)/PF 240 MCG/0.7 ML SYRINGE IM ONE (12:30)
--- NOTE | 2020-05-29 13:28 | PDOC.BPN ---
- Brief Progress Note Encounter Date: 05/29/20 Encounter Time: 13:26 Patient was seen and evaluated. This is an 85-year-old who was admitted overnight with change in mental status. She is a [facility] resident who tested positive to Covid virus on May 16, 2020. When I visited the patient today she was completely somnolent and obtunded. Even with deep sternal rub she is very difficult to arouse. I am told that she is a DO NOT RESUSCITATE. I will like to speak to family about this. I suspect she has a poor prognosis. I will continue current antibiotics and await all cultures
[2020-05-29 13:40] LABS: Actual Bicarbonate (HCO3a) 21.1 mEq/L (22-28); Base Excess (BEa) -2.8 mEq/L (-2.0 to +3.0); CO2 Tension 32.9 mmHg (35.0-45.0); Calcium, Ionized (arterial) 1.17 mmol/L (1.12-1.30); Carboxyhemoglobin (COHb) 0.6 gm% (0.0-3.0); Hemoglobin (Hb) 9.9 g/dL (12.0-16.0); O2 Tension (PaO2), arterial 66.2 mmHg (> 60.0); Potassium - ABG Lab 3.83 mmol/L (3.70-5.30); pH, Arterial 7.42 (7.35-7.45)
[2020-05-29 13:45] LABS: ALV-art Gradient 149.355 mmHg (0-20); Puncture Site LRA
[2020-05-29] MEDS: D5 1/2 NS w/10 mEq KCl 1,000 ML/1,000 ML BAG IV SCH (17:51)
[2020-05-29 21:29] LABS: Bacteria/HPF 3+ HPF (None Seen); Bilirubin Negative (Negative); Blood, Urine Trace (Negative); Clarity Clear (Clear); Glucose, Urine (Dipstick) Normal (Negative); Ketone, Urine Trace mg/dL (Negative); Leukocyte 25 Leu/uL (Negative); Nitrite Negative (Negative); Protein, Urine (Dipstick) 70 mg/dL (Neg-Trace); Specific Gravity, Urine 1.033 (1.002-1.036); Urobilinogen Normal mg/dL (Less than 2); pH, Urine 5.5 (5.0-9.0)
[2020-05-30] MEDS ORDERED: cefTRIAXone\\ROCEPHIN 1 GM in Sodium Chloride 0.9% 100 ML IVPB SCH (03:00)
[2020-05-30] MEDS: Azithromycin 500 MG in Sodium Chloride 0.9% 250 ML 250 ML IVPB SCH (05:56)
[2020-05-30 06:12] LABS: #Lymphocytes 0.6 thou/uL (1.20-3.40); #Monocytes 0.8 thou/uL (0.11-0.59); #Neutrophils 9.3 thou/uL (1.40-6.50); %Eosinophils 0.4 % (0.0-10.0); %Lymphocytes 5.9 % (21.0-51.0); %Monocytes 7.3 % (0.0-10.0); %Neutrophils 86.5 % (42.0-75.0); Hemoglobin 10.3 g/dL (12.0-16.0); Mean Corpuscular HGB CONC 31.8 g/dL (32.0-36.0); Mean Corpuscular Hemoglobin 32.6 pg (27.0-31.0); Mean Platelet Volume 8.3 fL (7.4-10.4); Platelet Count 267 thou/uL (130-400); RBC Distribution Width 12.3 % (11.5-14.5); Red Blood Cell (RBC) Count 3.16 mill/uL (4.20-5.40); White Blood Cell (WBC) Count 10.7 thou/uL (4.8-10.8)
[2020-05-30 06:28] LABS: Anion Gap 16 mmol/L (10-20); BUN (Urea Nitrogen) 36 mg/dL (9.8-20.1); Calc. Creatinine Clearance 60 mL/min (70-130); Calcium 8.5 mg/dL (7.8-10.44); Carbon Dioxide 17 mmol/L (23-31); Chloride 117 mmol/L (98-107); Glucose 167 mg/dL (83-110); Potassium 4.3 mmol/L (3.5-5.1); Sodium 146 mmol/L (136-145)
[2020-05-30] MEDS: D5 1/2 NS w/10 mEq KCl 1,000 ML/1,000 ML BAG IV SCH (07:39)
[2020-05-30] MEDS: Cefepime 2 GM in Sodium Chloride 0.9% 100 ML IVPB SCH ×2 (08:44→20:23)
[2020-05-30] MEDS: Dexamethasone 4 mg/ml Vial SLOW IVP SCH (08:45)
[2020-05-30] MEDS: Heparin 5,000 UNITS/ML VIAL SC SCH ×3 (08:45→20:22)
--- NOTE | 2020-05-30 10:26 | PDOC.HOSPP ---
- Subjective Encounter Date: 05/30/20 Encounter Time: 10:23 Subjective: Patient is an 85-[facility]-old [facility] resident who was admitted to the hospital with worsening confusion. She reportedly tested positive for Covid May 16, 2020 which would be about 2 weeks ago. She is on O2 via nasal cannula and seems to be doing reasonably okay. She is not interactive at the moment. 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 Since being admitted she has been found to have 1 out of 2 blood cultures positive for gram-positive cocci in clusters and I am going to change her antibiotics appropriately. Currently she is on Rocephin and azithromycin and I am going to add vancomycin for potentially staph coverage. I did call and update the patient's daughter Ms. Guillermo at [phone]. Right now the patient is struggling with tolerating any oral intake and speech therapist had evaluated her and agreed that she is at high risk for aspiration. We will continue speech evaluations going forward. Hopefully the plan will be to start her on oral intake in the near future if at all possible. The family will discuss about potentially to feeding and get back to medical team. - Objective Vital Signs & Weight: Vital Signs (12 hours) Temp Pulse Resp BP Pulse Ox 05/30/20 08:00 97.6 F 59 L 18 144/74 H 100 Weight Weight 145 lb 8.081 oz Result Diagrams: 05/30/20 05:58 05/30/20 05:58 Additional Labs: Accuchecks 05/29/20 16:37 POC Glucose 126 H Radiology Reviewed by me: Yes EKG Reviewed by me: Yes Hospitalist ROS - Review of Systems ROS unobtainable: due to mental status Constitutional: reports: weakness, malaise Respiratory: reports: cough, dry Gastrointestinal: reports: nausea Neurological: reports: weakness All other systems reviewed; all pertinent +/- noted in HPI/Subj - Medication Medications: Active Medications Generic Name Dose Route Start Last Admin Trade Name Freq PRN Reason Stop Dose Admin Dexamethasone 6 mg 05/29/20 09:00 05/30/20 08:45 Dexamethasone 4 Mg/Ml Vial SLOW IVP 6 mg DAILY PILY Administration Heparin Sodium (Porcine) 5,000 units 05/29/20 09:00 05/30/20 08:45 Heparin 5,000 Units/Ml Vial SC 5,000 units TID PILY Administration Azithromycin 500 mg/ Sodium 250 mls @ 250 mls/hr 05/30/20 06:00 05/30/20 05:56 Chloride IVPB 250 mls Q24HR PILY Administration Cefepime HCl 2 gm/ Sodium 100 mls @ 200 mls/hr 05/29/20 09:00 05/30/20 08:44 Chloride IVPB 100 mls Q12HR PILY Administration Potassium Chloride/Dextrose/Sod Cl 1,000 ml in 1,000 mls @ 75 mls/hr 05/29/20 16:30 05/30/20 07:39 D5 1/2 Ns W/10 Meq Kcl IV 1,000 mls .[id number] PILY Administration Sodium Chloride 10 ml 05/29/20 09:00 05/30/20 08:46 Flush - Normal Saline 10 Ml Syringe IVF 10 ml Q12HR PILY Administration - Exam General Appearance: NAD, awake alert, ill appearing Eye: PERRL, anicteric sclera ENT: normocephalic atraumatic, no oropharyngeal lesions, moist mucosa Neck: supple, symmetric, no JVD, no thyromegaly, no lymphadenopathy Heart: RRR, no murmur, no gallops, no rubs, normal peripheral pulses Respiratory: CTAB, no wheezes, no rales, no ronchi Gastrointestinal: soft, non-tender, non-distended, normal bowel sounds, no palpable masses Neurological: cranial nerve grossly intact, normal sensation to touch Musculoskeletal: normal tone, normal strength, no muscle wasting Psychiatric: normal affect, normal behavior, flat affect Hosp A/P (1) Urinary tract infection Status: Acute Plan: Urine culture is growing gram-negative rods. (2) Weakness generalized Code(s): R53.1 - WEAKNESS Status: Acute (3) Oropharyngeal dysphagia Code(s): R13.12 - DYSPHAGIA, OROPHARYNGEAL PHASE Status: Acute - Plan old records reviewed/req, plan discussed w/ family, PT/OT, speech therapy, respiratory therapy, DVT proph w/lovenox #1. Acute metabolic encephalopathy. Likely a combination of infectious and metabolic events. Could also be worsening of her baseline dementia. We will treat the modifiable factors including the infections going on. #2. Gram-positive cocci in clusters. In 1 out of 2 bottles. This is staph coagulase-negative This potentially could be infectious or a contaminant. However we will continue to treat until the final culture data becomes available. This can be deescalated as deemed appropriate. #3. Urinary tract infection. Urine culture is growing gram-negative rods. I suspect this will be an E. coli or other gram-negative bacteria. I will continue above antibiotics. 4. Recent history of COVID-19 She [facility] ([facility]) She seems to be doing reasonably well from the Covid standpoint. Continue supportive care as above. #5. Oropharyngeal dysphagia. At this point patient is very high risk for aspiration per speech therapist evaluations. We will continue her on aspiration precautions. Ongoing speech therapist evaluations.
[2020-05-30 11:52] LABS: Hemoglobin 7.7 g/dL (12.0-16.0); Mean Corpuscular HGB CONC 32.9 g/dL (32.0-36.0); Mean Corpuscular Hemoglobin 31.5 pg (27.0-31.0); Mean Corpuscular Volume 95.5 fL (78.0-98.0); Mean Platelet Volume 7.8 fL (7.4-10.4); Platelet Count 184 thou/uL (130-400); RBC Distribution Width 12.3 % (11.5-14.5); Red Blood Cell (RBC) Count 2.46 mill/uL (4.20-5.40); White Blood Cell (WBC) Count 10.5 thou/uL (4.8-10.8)
[2020-05-30 12:10] LABS: Band 4 % (5-11); Lymphocytes 9 % (21-51); MDiff Complete? YES; Monocytes 4 % (0-10); Neutrophil 83 % (42-75); Platelet Morphology Comment Appears Adequate; Polychromasia SLIGHT = 2-3 cells (100X) (0-2/hpf)
[2020-05-31] MEDS: D5 1/2 NS w/10 mEq KCl 1,000 ML/1,000 ML BAG IV SCH ×2 (00:10→10:26)
[2020-05-31 01:08] LABS: Albumin 2.7 g/dL (3.4-4.8); Anion Gap 13 mmol/L (10-20); Anion Gap 14 mmol/L (10-20); BUN (Urea Nitrogen) 34 mg/dL (9.8-20.1); BUN/Creatinine Ratio 50.75; Calc. Creatinine Clearance 64 mL/min (70-130); Calcium 8.4 mg/dL (7.8-10.44); Carbon Dioxide 20 mmol/L (23-31); Chloride 116 mmol/L (98-107); Glucose 153 mg/dL (83-110); Magnesium 2.2 mg/dL (1.6-2.6); Potassium 3.7 mmol/L (3.5-5.1); Sodium 145 mmol/L (136-145); Sodium 146 mmol/L (136-145)
[2020-05-31 01:12] LABS: Phosphorus 1.9 mg/dL (2.3-4.7)
[2020-05-31] MEDS ORDERED: Potassium Phosphate 9 MMOL in Sodium Chloride 0.9% 100 ML IVPB SCH (01:30)
[2020-05-31] MEDS: Azithromycin 500 MG in Sodium Chloride 0.9% 250 ML 250 ML IVPB SCH (06:13)
[2020-05-31 06:24] LABS: Anion Gap 14 mmol/L (10-20); BUN (Urea Nitrogen) 32 mg/dL (9.8-20.1); Calc. Creatinine Clearance 69 mL/min (70-130); Calcium 8.4 mg/dL (7.8-10.44); Carbon Dioxide 19 mmol/L (23-31); Chloride 119 mmol/L (98-107); Glucose 107 mg/dL (83-110); Potassium 3.8 mmol/L (3.5-5.1); Sodium 148 mmol/L (136-145)
[2020-05-31 06:55] LABS: Band 9 % (5-11); Hemoglobin 8.6 g/dL (12.0-16.0); Lymphocytes 14 % (21-51); MDiff Complete? YES; Mean Corpuscular HGB CONC 33.6 g/dL (32.0-36.0); Mean Corpuscular Hemoglobin 31.9 pg (27.0-31.0); Mean Corpuscular Volume 95.1 fL (78.0-98.0); Mean Platelet Volume 7.8 fL (7.4-10.4); Monocytes 10 % (0-10); Neutrophil 67 % (42-75); Platelet Count 281 thou/uL (130-400); RBC Distribution Width 12.2 % (11.5-14.5); Red Blood Cell (RBC) Count 2.69 mill/uL (4.20-5.40); White Blood Cell (WBC) Count 6.4 thou/uL (4.8-10.8)
[2020-05-31] MEDS: Heparin 5,000 UNITS/ML VIAL SC SCH ×3 (08:31→19:33)
[2020-05-31] MEDS: Cefepime 2 GM in Sodium Chloride 0.9% 100 ML IVPB SCH (08:31)
[2020-05-31] MEDS: Dexamethasone 4 mg/ml Vial SLOW IVP SCH (08:31)
[2020-05-31] MEDS ORDERED: cefTRIAXone\\ROCEPHIN 1 GM in Sodium Chloride 0.9% 100 ML IVPB SCH (10:00)
[2020-05-31] MEDS: Dextrose 5% in Water 1,000 ML IV SCH (10:30)
--- NOTE | 2020-05-31 14:27 | CON ---
DATE OF CONSULTATION: HISTORY OF PRESENT ILLNESS: The patient unfortunate 85-year-old woman with severe dementia, who was noted to have developed a slow heart rate. The patient is unable to give any type of coherent history. She has previously suffered cerebrovascular accidents. The patient was admitted and found to be COVID positive. The patient was on medical floor when she was noted to have a slow heart rate. The patient is unable to give any type of history. PAST MEDICAL HISTORY: 1. CVA. 2. Dementia. 3. Hypertension. 4. GE reflux. PAST SURGICAL HISTORY: SOCIAL HISTORY: Unobtainable. FAMILY HISTORY: Unobtainable. REVIEW OF SYSTEMS: Unobtainable. ALLERGIES: UNOBTAINABLE. MEDICATIONS: See nursing list. PHYSICAL EXAMINATION: VITAL SIGNS: Blood pressure was 136/59, heart rate is 42. Physical examination was deferred. LABORATORY RESULTS: Sodium 148, potassium 3.8, chloride 19, bicarb 19, BUN 32, creatinine 0.62, glucose 107. White blood cell count 6.4, hemoglobin 8.6, hematocrit 25.6, her platelets were 281. EKG normal sinus rhythm, left axis deviation, and Q-waves suggestive of previous inferior infarct. IMPRESSION: 1. Bradycardia. 2. COVID positive. 3. History of cerebrovascular accident. 4. End-stage renal disease. This patient presents with bradycardia. She has not been hypotensive. From a cardiac standpoint, with her severe dementia, conservative therapy would be recommended. We will follow this patient with you through her hospitalization. Job ID: [id number] MTDD
--- NOTE | 2020-05-31 17:18 | PDOC.HOSPP ---
- Subjective Encounter Date: 05/31/20 Encounter Time: 14:00 Subjective: F/u: COVID The patient is non-verbal. She has no complaints. Speech saw her and advanced her diet - Objective Vital Signs & Weight: Vital Signs (12 hours) Temp Pulse Resp BP Pulse Ox 05/31/20 15:10 98.2 F 55 L 18 107/56 L 99 05/31/20 12:20 97.7 F 42 L 18 136/59 L 100 05/31/20 08:35 98.3 F 46 L 18 133/62 98 05/31/20 05:55 140/64 05/31/20 05:25 97.8 F 50 L 18 100 Weight Admit Weight 145 lb 8 oz Weight 145 lb 8.081 oz I&O: 05/30/20 05/31/20 06/01/20 06:59 06:59 06:59 Intake Total 958 Output Total 251 Balance 707 Result Diagrams: 05/31/20 05:52 05/31/20 05:52 Hospitalist ROS - Review of Systems Constitutional: denies: fever, chills - Medication Medications: Active Medications Generic Name Dose Route Start Last Admin Trade Name Freq PRN Reason Stop Dose Admin Dexamethasone 6 mg 05/29/20 09:00 05/31/20 08:31 Dexamethasone 4 Mg/Ml Vial SLOW IVP 6 mg DAILY PILY Administration Heparin Sodium (Porcine) 5,000 units 05/29/20 09:00 05/31/20 15:04 Heparin 5,000 Units/Ml Vial SC 5,000 units TID PILY Administration Azithromycin 500 mg/ Sodium 250 mls @ 250 mls/hr 05/30/20 06:00 05/31/20 0 6:13 Chloride IVPB 250 mls Q24HR PILY Administration Dextrose/Water 1,000 mls @ 75 mls/hr 05/31/20 09:00 05/31/20 10:30 D5w IV 1,000 mls .[id number] PILY Administration Sodium Chloride 10 ml 05/29/20 09:00 05/31/20 08:31 Flush - Normal Saline 10 Ml Syringe IVF 10 ml Q12HR PILY Administration - Exam General Appearance: NAD, awake alert Eye: PERRL, anicteric sclera ENT: normocephalic atraumatic, no oropharyngeal lesions Neck: no JVD Heart: RRR, no murmur, no gallops, no rubs Respiratory: CTAB, no wheezes, no rales, no ronchi Gastrointestinal: soft, non-tender, non-distended, normal bowel sounds, no hepatomegaly Extremities: no cyanosis, no clubbing, no edema Skin: normal turgor, no lesions, no rashes Neurological: cranial nerve grossly intact, normal sensation to touch, no weakness Neurological - other findings: chronic right leg weakness per nurse Hosp A/P - Plan CT brain: no acute disease Chest Xray: patchy infiltrates, left greater than right This is an 85 year old female with past medical history of stroke who presented with altered mental status,a dmitted with COVID COVID pneumonia - on room air currently, continue ceftriaxone and azithromycin - will stop steroids Acute encephalopathy - possibly from stroke vs dementia vis COVID - supportive care History of stroke- currently aphasic - place PT/OT/speech Malnutrition - started pureed diet today Severe dementia - will place palliative care consult Hypernatremia - sodium 148. Started tube feeds. Switch fluids to D5W
[2020-05-31 18:40] LABS: Anion Gap 15 mmol/L (10-20); BUN (Urea Nitrogen) 27 mg/dL (9.8-20.1); Calc. Creatinine Clearance 60 mL/min (70-130); Calcium 8.1 mg/dL (7.8-10.44); Carbon Dioxide 19 mmol/L (23-31); Chloride 112 mmol/L (98-107); Glucose 212 mg/dL (83-110); Potassium 3.8 mmol/L (3.5-5.1); Sodium 142 mmol/L (136-145)
[2020-06-01] MEDS: Dextrose 5% in Water 1,000 ML IV SCH (00:38)
[2020-06-01] MEDS: Azithromycin 500 MG in Sodium Chloride 0.9% 250 ML 250 ML IVPB SCH (05:18)
[2020-06-01] MEDS: Heparin 5,000 UNITS/ML VIAL SC SCH ×3 (08:18→19:59)
[2020-06-01] MEDS: Dexamethasone 4 mg/ml Vial SLOW IVP SCH (08:18)
[2020-06-01] MEDS: cefTRIAXone\\ROCEPHIN 1 GM in Sodium Chloride 0.9% 100 ML IVPB SCH (08:18)
--- NOTE | 2020-06-01 14:50 | PDOC.HOSPP ---
- Subjective Encounter Date: 06/01/20 Encounter Time: 12:30 Subjective: F/u: COVID The patient is alert and in her room. She is non-verbal. She is eating some of her food per nurse. Spoke with the daughter who was unhappy with her current halfway and wants to switch her to a new halfway, the [facility] in [place]. She has been hospitalized twice in the past two months for UTI per daughter. She states hospice evaluated the patient earlier this month but was not fully set up because the patient was re-hospitalized. Daughter is open to having hospice re- evaluate tomorrow. SHe is aware of risk of recurrent admissions due to her severe dementia - Objective Vital Signs & Weight: Vital Signs (12 hours) Temp Pulse Resp BP Pulse Ox 06/01/20 08:35 97.8 F 51 L 20 111/58 L 93 L 06/01/20 05:20 98.2 F 47 L 18 132/62 95 Weight Admit Weight 145 lb 8 oz Weight 126 lb 6.4 oz I&O: 05/31/20 06/01/20 06/02/20 06:59 06:59 06:59 Intake Total 958 1380 Output Total 251 900 Balance 707 480 Result Diagrams: 05/31/20 05:52 05/31/20 18:12 Hospitalist ROS - Review of Systems Constitutional: denies: fever, chills - Medication Medications: Active Medications Generic Name Dose Route Start Last Admin Trade Name Freq PRN Reason Stop Dose Admin Heparin Sodium (Porcine) 5,000 units 05/29/20 09:00 06/01/20 08:18 Heparin 5,000 Units/Ml Vial SC 5,000 units TID PILY Administration Azithromycin 500 mg/ Sodium 250 mls @ 250 mls/hr 05/30/20 06:00 06/01/20 05:18 Chloride IVPB 250 mls Q24HR PILY Administration Ceftriaxone Sodium 1 gm/ 100 mls @ 200 mls/hr 06/01/20 09:00 06/01/20 08:18 Sodium Chloride IVPB 100 mls 0900 PILY Administration Sodium Chloride 10 ml 05/29/20 09:00 06/01/20 10:46 Flush - Normal Saline 10 Ml Syringe IVF Not Given Q12HR PILY - Exam General Appearance: NAD, awake alert Eye: PERRL, anicteric sclera ENT: normocephalic atraumatic, no oropharyngeal lesions Neck: no JVD Heart: RRR, no murmur, no gallops, no rubs Respiratory: CTAB, no wheezes, no rales, no ronchi Gastrointestinal: soft, non-tender Extremities: no cyanosis, no clubbing, no edema Skin: normal turgor, no lesions, no rashes Neurological - other findings: aphasic, nonverbal. Spontaneously moves left arm. Winces to painful stimuli Musculoskeletal - other findings: bed-bound Psychiatric: oriented to person, flat affect Hosp A/P - Plan CT brain: no acute disease Chest Xray: patchy infiltrates, left greater than right This is an 85 year old female with past medical history of stroke who presented with altered mental status,a dmitted with COVID COVID pneumonia - on room air currently, continue ceftriaxone and azithromycin day 1. - steroids discontinued Acute encephalopathy - possibly from stroke vs dementia vis COVID - supportive care History of stroke- currently aphasic -continue PT/OT/speech Malnutrition - continued pureed diet Severe dementia - will place palliative care consult, daughter is interested in setting patient up with home hospice Hypernatremia - resolved. Discontinued IV fluids Disposition: stable for discharge, pending placement to different halfway. Also will see if can set up with home hospice
[2020-06-02] MEDS: Azithromycin 500 MG in Sodium Chloride 0.9% 250 ML 250 ML IVPB SCH (05:10)
[2020-06-02 05:19] LABS: Hemoglobin 10.2 g/dL (12.0-16.0); Mean Corpuscular HGB CONC 33.5 g/dL (32.0-36.0); Mean Corpuscular Volume 95.5 fL (78.0-98.0); Mean Platelet Volume 7.6 fL (7.4-10.4); Platelet Count 316 thou/uL (130-400); RBC Distribution Width 11.8 % (11.5-14.5); Red Blood Cell (RBC) Count 3.18 mill/uL (4.20-5.40); White Blood Cell (WBC) Count 7.6 thou/uL (4.8-10.8)
[2020-06-02] MEDS: Heparin 5,000 UNITS/ML VIAL SC SCH ×3 (09:02→22:00)
[2020-06-02] MEDS: cefTRIAXone\\ROCEPHIN 1 GM in Sodium Chloride 0.9% 100 ML IVPB SCH (09:02)
[2020-06-02 13:22] VITALS: BMI 19.8
--- NOTE | 2020-06-02 16:23 | EKG ---
Test Reason : CP Blood Pressure : / mmHG Vent. Rate : 048 BPM Atrial Rate : 048 BPM P-R Int : 170 ms QRS Dur : 102 ms QT Int : 504 ms P-R-T Axes : 021 041 053 degrees QTc Int : 450 ms Poor data quality, interpretation may be adversely affected Sinus bradycardia Cannot rule out Anterior infarct (cited on or before 07-MAR-2020) Abnormal ECG When compared with ECG of 07-MAR-2020 12:05, Vent. rate has decreased BY [address] no longer depressed in Inferior leads Confirmed by DR. Justin CAMPOS ([id number]) on 06/02/2020 4:23:20 PM Referred By: GRACE Confirmed By:DR. Justin CAMPOS
--- NOTE | 2020-06-02 17:16 | PDOC.HOSPP ---
- Subjective Encounter Date: 06/02/20 Encounter Time: 08:00 Subjective: F/u: COVId The patient does not respond or talk. She is on room air. She was seen by palliative care who are looking into hospice with the family Looking at sending to another [place] [facility] currently still - Objective Vital Signs & Weight: Vital Signs (12 hours) Temp Pulse Resp BP Pulse Ox 06/02/20 11:40 97.3 F L 52 L 20 102/62 94 L 06/02/20 08:45 97.5 F L 51 L 15 147/77 H 95 Weight Admit Weight 145 lb 8 oz Weight 126 lb 6.4 oz I&O: 06/01/20 06/02/20 06/03/20 06:59 06:59 06:59 Intake Total 1380 250 Output Total 900 850 Balance 480 -600 Result Diagrams: 06/02/20 04:53 05/31/20 18:12 Hospitalist ROS - Review of Systems Constitutional: reports: fever. denies: chills - Medication Medications: Active Medications Generic Name Dose Route Start Last Admin Trade Name Freq PRN Reason Stop Dose Admin Heparin Sodium (Porcine) 5,000 units 05/29/20 09:00 06/02/20 16:35 Heparin 5,000 Units/Ml Vial SC 5,000 units TID PILY Administration Azithromycin 500 mg/ Sodium 250 mls @ 250 mls/hr 05/30/20 06:00 06/02/20 05:10 Chloride IVPB 250 mls Q24HR PILY Administration Ceftriaxone Sodium 1 gm/ 100 mls @ 200 mls/hr 06/01/20 09:00 06/02/20 09:02 Sodium Chloride IVPB 100 mls 0900 PILY Administration Sodium Chloride 10 ml 05/29/20 09:00 06/02/20 09:02 Flush - Normal Saline 10 Ml Syringe IVF 10 ml Q12HR PILY Administration Sodium Chloride 10 ml 05/29/20 07:15 06/02/20 05:10 Flush - Normal Saline 10 Ml Syringe IVF 10 ml PRN PRN Administration Saline Flush - Exam General Appearance: NAD General - other findings: drowsy, opens eyes to command Eye: PERRL, anicteric sclera ENT: normocephalic atraumatic, no oropharyngeal lesions Neck: supple, symmetric, no JVD Heart: RRR, no murmur, no gallops, no rubs Respiratory: CTAB, no wheezes, no rales, normal chest expansion Gastrointestinal: soft, non-tender, non-distended, normal bowel sounds Extremities: no cyanosis, no clubbing, no edema Skin: normal turgor, no lesions, no rashes Neurological: hemiplegia (right side appears to be weak) Neurological - other findings: squeezes left hand to command. Wiggles left toe Hosp A/P - Plan CT brain: no acute disease Chest Xray: patchy infiltrates, left greater than right This is an 85 year old female with past medical history of stroke who presented with altered mental status,a dmitted with COVID COVID pneumonia - on room air currently, continue ceftriaxone and azithromycin day 2. - steroids discontinued Acute encephalopathy - possibly from stroke vs dementia vs COVID - supportive care. I feel she is at baseline History of stroke- currently aphasic -continue PT/OT/speech Malnutrition - continued pureed diet Severe dementia - palliative care has been consulted ANemia - stable, B12/folate/TSH normal Disposition: stable for discharge, pending placement to different [place] [facility]. Also will see if can set up with home hospice
[2020-06-03 05:32] LABS: Anion Gap 12 mmol/L (10-20); BUN (Urea Nitrogen) 17 mg/dL (9.8-20.1); Calc. Creatinine Clearance 62 mL/min (70-130); Calcium 8.2 mg/dL (7.8-10.44); Carbon Dioxide 24 mmol/L (23-31); Chloride 107 mmol/L (98-107); Glucose 86 mg/dL (83-110); Potassium 3.4 mmol/L (3.5-5.1); Sodium 140 mmol/L (136-145)
[2020-06-03] MEDS: Azithromycin 500 MG in Sodium Chloride 0.9% 250 ML 250 ML IVPB SCH (06:48)
[2020-06-03] MEDS ORDERED: Potassium Chloride 20 MEQ TAB PO SCH (08:15)
[2020-06-03] MEDS: Heparin 5,000 UNITS/ML VIAL SC SCH ×2 (09:05→15:25)
[2020-06-03] MEDS: cefTRIAXone\\ROCEPHIN 1 GM in Sodium Chloride 0.9% 100 ML IVPB SCH (09:06)
[2020-06-03] MEDS ORDERED: Aspirin 81 mg Enteric Coated Tablet PO SCH (13:30)
[2020-06-03] MEDS ORDERED: Levothyroxine Sodium 100 MCG TAB PO SCH (13:30)
--- NOTE | 2020-06-03 15:06 | PDOC.FMACP ---
Advance Care Planning - Problem (1) Anemia Status: Acute Code(s): D64.9 - ANEMIA, UNSPECIFIED (2) Palliative care encounter Status: Acute Code(s): Z51.5 - ENCOUNTER FOR PALLIATIVE CARE (3) Dementia Status: Chronic Code(s): F03.90 - UNSPECIFIED DEMENTIA WITHOUT BEHAVIORAL DISTURBANCE (4) FTT (failure to thrive) in adult Status: Chronic - Note Participants: family, palliative care Summary: Palliative care revisited Advanced Care Planning with patient family. The diagnosis, prognosis and goals of care were discussed. Appropriate forms and documentation to accomplish the goals of care were discussed. All questions were answered. Confirmed DNAR status and OOHDNAR complete. Family electing to transition to [facility] with hospice to manage symptoms related to terminal condition, focus on comfort and forgo aggressive measures. *Communicated with Dr Almanza *Palliative Care has communicated with Maik Flanagan *Discharge back to [facility]/with hospice through [facility] Please also refer to Palliative care notes in note section. Time Spent (mins): 20
[2020-06-03 15:46] VITALS: BP 91/42; TEMP 98.8
--- NOTE | 2020-06-03 18:31 | PDOC.DS.DS ---
Provider - Provider Date of Admission: 05/29/20 05:46 Date of Discharge: 06/03/20 Admitting Provider: Mallorie Mejía MD Consultations: Other (Palliative Care with [facility]unc[facility] Ovalles) Primary Care Physician: Kiarra Garay DO Course - Hospital Course Hospital Course: Discharge Diagnoses: Acute hypoxic respiratory failure secondary to COVID pneumonia Anemia Hypokalemia Hyponatremia Brief HPI: This is an 85 year old male with past medical history of dementia, stroke who presented to the hospital with generalized weakness and shortness of breath. The patient is aphasic at baseline Hospital Course: Acute hypoxic respiratory failure secondary to COVID pneumonia: Patient was initially placed on 4 L of oxygen. Chest x-ray showed bilateral patchy infiltrates left greater than right. Patient was started on ceftriaxone and azithromycin and received 5 days of this while in the hospital. She was weaned off oxygen. Acute on chronic encephalopathy possibly secondary to stroke versus dementia: Patient is aphasic at baseline from an old stroke. She does not really move her right side. Patient was seen by speech therapy and was advanced to a pured diet. Her risperidone was changed to prn on discharge and her gabapentin was discontinued because she did not have any pain. After discussion with the daughter, she requested the patient be switched to a different fdc. Patient will be discharged to [facility] with hospice Hypernatremia: the patient's sodium was 148 which resolved to normal after diet being advanced. Pertinent Studies: Chest X ray 05/29: Mild appearance of patchy lung infiltrates, left greater than right CT brain: Chronic microvascular disease. Resuscitation Status: 05/29/20 07:18 Resuscitation Status Routine Resuscitation Status: DNAR: NO Resuscitation Discussed with: Mima - Labs Lab Results: 06/02/20 04:53 06/03/20 04:56 Abnormal Lab Results - Last 48 hrs 06/02/20 04:53: Vitamin B12 1534 H 06/02/20 04:53: RBC 3.18 L, Hgb 10.2 L, Hct 30.4 L, MCH 32.0 H 06/03/20 04:56: Potassium 3.4 L Microbiology - Entire Visit 05/31/20 10:36 Venous blood - Left Hand Blood Culture - Preliminary NO GROWTH AT 48 HOURS 05/31/20 10:36 Venous blood - Right Hand Blood Culture - Preliminary NO GROWTH AT 48 HOURS - Physical Exam Vitals: Vital Signs (12 hours) Temp Pulse Resp BP BP Pulse Ox 06/03/20 15:44 98.8 F 78 19 91/42 L 99 06/03/20 11:50 98.4 F 68 16 98/58 L 94 L 06/03/20 09:56 107/56 L 06/03/20 09:15 98.1 F 68 22 H 82/48 L 93 L Weight Admit Weight 145 lb 8 oz Weight 121 lb Physical Exam: The patient was seen and examined on the day of discharge. General: patient is nonverbal, she is in no distress CV: RRR, no murmurs, rubs, gallops Lungs: CTAB Abdomen: +BS, soft, nontender, nondistended Extremities: no edema Neuro: patient is aphasic. She squeezes left hand to command occasionally and wiggles left toe. Dois not move the right arm or leg Problem - Discharge Plan Plan of Treatment: Consider repeat chest X ray in 6 weeks and repeat potassium in a week - Time spent with Patient (mins): 35 Plan - Discharge Medications Prescriptions: risperiDONE [RisperDAL] 0.25 mg PO BID PRN #60 tab PRN Reason: Agitation Home Medications: Medication Instructions Recorded Confirmed Type Aspirin [Ecotrin Low Strength] 81 mg PO DAILY tab 02/26/20 05/29/20 Rx Donepezil HCl [Aricept] 10 mg PO HS tab 02/26/20 05/29/20 Rx Levothyroxine Sodium [Synthroid] 100 mcg PO 0600 tab 02/26/20 05/29/20 Rx Acetaminophen 300 mg PO QID 03/01/20 03/08/20 History Docusate [Colace] 100 mg PO DAILY PRN 03/01/20 03/08/20 History Famotidine 20 mg PO QAM 03/01/20 05/29/20 History Lactobacillus [Floranex] 1 tab PO DAILY 03/01/20 03/08/20 History Multivitamin W/ Minerals 1 tab PO DAILY 03/01/20 05/29/20 History [Theragran M] Citalopram [CeleXA] 10 mg PO DAILY 03/08/20 05/29/20 History risperiDONE [RisperDAL] 0.25 mg PO BID PRN #60 tab 06/03/20 Rx Allergies: shellfish derived Allergy (Verified 05/31/20 07:17) - Discharge Instructions Discharge Instructions:: Pt to recieve services from [facility] in the fdc Activity:: Activity as Tolerated Nourishment:: Regular Diet - Follow up Plan Referrals: [facility]* [Outside] Kiarra Garay DO [Primary Care Provider] - Disposition: [facility]IV[facility] Quality - Care Measures CORE MEASURES:: N/A
[2020-06-03] MEDS ORDERED: Donepezil HCl 5 MG TAB PO SCH (21:00)
[2020-06-04] MEDS ORDERED: Levothyroxine Sodium 100 MCG TAB PO SCH (06:00)
[2020-06-04] MEDS ORDERED: Aspirin 81 mg Enteric Coated Tablet PO SCH (09:00)
== END 2020-06-03 18:01 | DRG 177 ==
LOC: SUATTDRO 05:17 → ERS 05:17 → T4-B 05:46 → 2SW 05-31
PROVIDERS: ADMIT Internal Medicine; ATTEND Internal Medicine
DX: U07.1 COVID-19 (principal); J12.89 Other viral pneumonia; J96.01 Acute respiratory failure with hypoxia; Z66 Do not resuscitate; G93.41 Metabolic encephalopathy; N39.0 Urinary tract infection, site not specified; E46 Unspecified protein-calorie malnutrition; E87.0 Hyperosmolality and hypernatremia; Z68.1 Body mass index [BMI] 19.9 or less, adult; F03.90 Unspecified dementia, unspecified severity, without behavioral disturbance, psychotic disturbance, mood disturbance, and anxiety; E03.9 Hypothyroidism, unspecified; R62.7 Adult failure to thrive; K21.9 Gastro-esophageal reflux disease without esophagitis; D64.9 Anemia, unspecified; I10 Essential (primary) hypertension; M19.90 Unspecified osteoarthritis, unspecified site; R00.1 Bradycardia, unspecified; R13.12 Dysphagia, oropharyngeal phase; G62.9 Polyneuropathy, unspecified; B96.20 Unspecified Escherichia coli [E. coli] as the cause of diseases classified elsewhere; I69.320 Aphasia following cerebral infarction
CPT/HCPCS: 36415; 36416; 36600; 80048; 82607; 82746; 82805; 83605; 83735; 83880; 84443; 84484; 85025; 85027; 87040; 93005; 93010; 94760; 96365; J0456; J0692; J0696; J1100; J1644; J3480; J3490; J7050